=== PATIENT | male | born 2005 | race Hispanic/Latino ===

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

== ENCOUNTER 2024-07-13 04:21 | Emergency (ER) | payer MEDICAID ==
[~2024-07-13] VITALS: Ht 180.3 cm; Wt 140.6 kg
[~2024-07-13 04:21] MED LIST: CETI10TA57 PO; GUAIF10 PO; IBUP-2070 PO; ONDA-243 PO; OSEL75 PO
[2024-07-13] MEDS ORDERED: KETO10TA2 PO (05:15)
[2024-07-13] MEDS: KETOROLAC 30MG VIAL (30MG/ML) IM ONE (05:29)
[2024-07-13] MEDS: MORPHINE 2 MG SYG IM ONE (05:29)
[2024-07-13 06:33] VITALS: BP 135/69; PULSE 68; RESP 14; O2SAT 99
== END 2024-07-13 06:42 | disposition home or self-care (01) ==
LOC: EDH 04:21
DX: S83.8X1A Sprain of other specified parts of right knee, initial encounter (principal); Z79.899 Other long term (current) drug therapy; W16.712A Jumping or diving from boat striking water surface causing other injury, initial encounter; Y93.89 Activity, other specified; Y92.89 Other specified places as the place of occurrence of the external cause; Y99.8 Other external cause status
CPT/HCPCS: 99284; 29505; 73562; 96372 ×2; J2270; J1885